=== PATIENT | male | born 1970 | race Caucasian/White ===

== ENCOUNTER 2025-03-12 20:59 | Observation (INO) ==
--- NOTE | 2025-03-12 21:15 | Emergency Department Note ---
Impression & Plan Chest pain, Hx of CABG ED Provider Note NAME: PREET ESTEBAN AGE: 54 SEX: M : 1970 ARRIVES VIA: Walk-In INFORMANT: Patient, ED PROVIDER(S): Dread Ordonez MD CHIEF COMPLAINT: Chest pain MEDICAL DECISION MAKING: Patient presents due to concern for chest pains. IV was established and blood work was obtained along with D-dimer. Patient's blood work shows a normal white count hemoglobin of 13.3 with a normal platelet count. Kidney function is unremarkable. Troponin negative. D-dimer is not elevated. Given the patient's known prior history of CABG with chest pain with radiation to the left arm I did consider escalation of care and offered admission. Patient is amenable to this. Patient was ordered 324 of aspirin. I did speak the on-call hospital service Dr. Wayne. The patient was admitted to the medicine service. Discussion w/ other healthcare providers: Dr. Adams inpatient medicine service Prior /Outside records reviewed: None Differential diagnosis: Cardiac ischemia, aortic dissection, pulmonary embolism, pneumothorax, pneumonia, pericarditis, myocarditis, GERD, cholecystitis, pancreatitis, musculoskeletal, as well as other pathologies were considered. Diagnostics, as interpreted by me: ECG: Normal sinus rhythm, rate of 81, normal intervals, normal axis no ST elevations or TWI. Cardiac monitoring: An order was placed for continuous cardiac monitoring. The monitor shows a rate of 76 with sinus rhythm. Patient was placed on pulse oximetry Medical decision rules: Heart score Imaging studies: I informally interpreted the patient's Chest x-ray does not show obvious pneumonia or pneumothorax, slight elevation of right hemidiaphragm with sternotomy wires noted. with formal report to follow. HPI: Patient presents due to concern for chest pains. He reports a left-sided chest pain primarily just with breathing. Patient denies any falls or trauma. He does appear for work and recently traveled from [place]. Patient reports that he does have a prior history of CABG that was completed about a year ago. He is compliant with antiplatelet medicine. He currently is only taking aspirin. This does not feel similar to his prior CABG. He states that this pain is similar to when he had a history of lymphoma. He reports that he had a stem cell treatment and did receive chemo and radiation therapies and is since in remission. This is back in 2015 and 2016. He denies any leg swelling or calf pain no history of DVT or PE. No falls or trauma. Denies any cough or fever. He does admit to some easy fatigability and shortness of breath with exertion but no exertional chest pains. He also did report that he had some numbness and tingling in the left arm. PAST MEDICAL HISTORY: CAD, lymphoma PAST SURGICAL HISTORY: CABG SOCIAL HISTORY: See Below HOME MEDICATIONS: See Below ALLERGIES: See Below VITALS: See Below PHYSICAL EXAMINATION: GENERAL: NAD, non-toxic. EYE EXAM: Normal conjunctiva. PERRL, no anisocoria and EOM's grossly intact w/o pain. OROPHARYNX: Moist mucus membranes, grossly normal dentition. NECK: Trachea midline, no stridor. LUNGS: Clear to auscultation. Normal chest wall mechanics. HEART: NSR, no MRG. ABDOMEN: Abdomen soft, non-tender, no masses, no rebound or guarding. BACK: No CVA TTP. SKIN: No rashes and no bruising. UPPER EXTREMITIES: Upper extremities are grossly normal. LOWER EXTREMITIES: Grossly normal, no edema. Negative Homans' sign bilaterally. NEURO EXAM: Awake and alert, follows commands, no obvious facial asymmetry, normal speech, moves all 4 extremities. Past Med/Surg History Problem List (Updated 03/13/25 @ 01:13 by Dread Ordonez MD) Hx of CABG (Acute) Chest pain (Acute) Social History Smoking Status: Never smoker Feels Safe at Home: Yes Allergies Allergies Allergy/AdvReac Type Severity Reaction Status Date / Time No Known Allergies Allergy Unverified 03/12/25 22:59 Home Meds Home Medications Medication Instructions Recorded Confirmed aspirin 325 mg tablet 325 mg PO QAM 03/12/25 03/12/25 atorvastatin 20 mg tablet 20 mg PO HS 03/12/25 03/12/25 cyanocobalamin (vitamin B-12) 1,000 mcg PO QAM 03/12/25 03/12/25 1,000 mcg tablet (Vitamin B-12) methenamine hippurate 1 gram tablet 1 g PO [facility] 03/12/25 03/12/25 metoprolol tartrate 25 mg tablet 25 mg PO QAM 03/12/25 03/12/25 omeprazole 20 mg capsule,delayed 20 mg PO DAILYBB 03/12/25 03/12/25 release Results & Data (ED) Vital Signs Vital Signs - 24 hr 03/12/25 21:01 03/12/25 21:16 03/12/25 21:20 Temperature 36.8 C Temperature Source Oral Pulse Rate 89 83 Pulse Rate [Apical] Pulse Rate from SpO2 Sensor Pulse Rhythm Pulse Rhythm [Apical] Pulse Strength [Apical] Respiratory Rate 18 Respiratory Effort / Characteristics Non-Labored Spontaneous Non-Labored Spontaneous Short of Breath Respiratory Depth Normal Respiratory Pattern Blood Pressure 139/89 Blood Pressure [Right Arm] Blood Pressure Mean 105 Blood Pressure Mean [Right Arm] Blood Pressure Position [Right Arm] Pulse Oximetry 100 Oxygen Delivery Method Room Air Sepsis Recent Fever Within 48 Hours No Sepsis New/Unexplained Change in Mental Status N/A Sepsis Action Taken by Nursing No Action Required 03/12/25 21:20 03/12/25 21:20 03/12/25 21:20 Temperature Temperature Source Pulse Rate 79 Pulse Rate [Apical] 78 Pulse Rate from SpO2 Sensor Pulse Rhythm Regular Pulse Rhythm [Apical] Regular Pulse Strength [Apical] Normal Respiratory Rate 15 20 Respiratory Effort / Characteristics Non-Labored Spontaneous Respiratory Depth Normal Respiratory Pattern Regular Blood Pressure Blood Pressure [Right Arm] 150/86 H Blood Pressure Mean Blood Pressure Mean [Right Arm] 107 Blood Pressure Position [Right Arm] Lying Pulse Oximetry 97 98 96 Oxygen Delivery Method Room Air Room Air Room Air Sepsis Recent Fever Within 48 Hours Sepsis New/Unexplained Change in Mental Status Sepsis Action Taken by Nursing 03/12/25 22:45 03/13/25 00:00 03/13/25 00:03 Temperature Temperature Source Pulse Rate 79 Pulse Rate [Apical] 81 Pulse Rate from SpO2 Sensor 78 Pulse Rhythm Pulse Rhythm [Apical] Regular Pulse Strength [Apical] Normal Respiratory Rate 18 13 Respiratory Effort / Characteristics Non-Labored Spontaneous Respiratory Depth Normal Respiratory Pattern Regular Blood Pressure 139/86 Blood Pressure [Right Arm] 133/81 Blood Pressure Mean 98 Blood Pressure Mean [Right Arm] 98 Blood Pressure Position [Right Arm] Lying Pulse Oximetry 96 97 Oxygen Delivery Method Room Air Room Air Sepsis Recent Fever Within 48 Hours Sepsis New/Unexplained Change in Mental Status Sepsis Action Taken by Assisted Medications Current Medication List: was personally reviewed by me Laboratory Data Attestation: I reviewed the patient's lab results. 03/12/25 21:17 03/12/25 21:17 Lab Results 03/12/25 Range/Units 21:17 WBC 7.28 (4.8-10.8) K/ul RBC 4.33 L (4.70-6.10) M/uL Hgb 13.3 L (14.0-18.0) g/dl Hct 39.1 L (42.0-52.0) % MCV 90.3 (80.0-100.0) fL MCH 30.7 (25.0-34.0) pg MCHC 34.0 (32.0-36.0) g/dL RDW Std Deviation 40.2 (36.4-46.3) fL RDW Coeff of Zaki 12.2 (11.5-14.5) % Plt Count 151 (130-400) K/uL MPV 9.3 L (9.4-12.4) fL Immature Gran % (Auto) 0.4 % Neut % (Auto) 57.1 % Lymph % (Auto) 29.8 % Hardy % (Auto) 11.5 % Eos % (Auto) 0.8 % Baso % (Auto) 0.4 % Neut # (Auto) 4.15 (1.40-6.50) K/uL Lymph # (Auto) 2.17 (1.20-3.40) K/uL Hardy # (Auto) 0.84 H (0.11-0.59) K/uL Eos # (Auto) 0.06 (0.00-0.50) K/uL Baso # (Auto) 0.03 (0.00-0.20) K/uL Immature Gran # (Auto) 0.03 (0.01-0.20) K/uL D-Dimer 500 (0-500) ug/L FEU Sodium 139 (136-145) mmol/L Potassium 3.9 (3.5-5.1) mmol/L Chloride 106 (98-107) mmol/L Carbon Dioxide 27 (21-32) mmol/L Anion Gap 6 (3-11) BUN 20 (6-23) mg/dl Creatinine 1.19 (0.6-1.4) mg/dl Est Cr Clr Drug Dosing 76.1 ml/min eGFR 71.69 BUN/Creatinine Ratio 16.8 (10-20) Glucose 114 H (70-99(Fasting)) mg/dl Calcium 9.1 (8.6-10.3) mg/dl Total Bilirubin 0.9 (0.2-1.0) mg/dl AST 21 (13-39) U/L ALT 22 (7-52) U/L Alkaline Phosphatase 80 (34-104) U/L Troponin I High Sens 4.4 (0-20) pg/ml Total Protein 6.6 (6.0-8.3) gm/dl Albumin 3.9 (3.4-5.0) gm/dl Globulin 2.7 (2.5-4.0) gm/dl Albumin/Globulin Ratio 1.4 (0.9-2) Lipase 9 L (11-82) U/L Administered Medications Discontinued Medications Ioversol (Optiray 320 125ml) 118 ml IV ONCE ONE Stop: 03/13/25 00:10 Last Admin: 03/13/25 00:10 Dose: 118 ml Documented By: LYNETTE Ondansetron HCl (Ondansetron Inj 2 Mg/Ml 2 Ml Vial) 4 mg IV NOW STA Stop: 03/12/25 22:41 Last Admin: 03/12/25 22:49 Dose: Not Given Documented By: [facility] Imaging Data Radiologist's Impression: Chest X-Ray 03/12/25 21:14 Exam(s): XR CXR 1 VIEW EXAM: XR Chest, 1 View CLINICAL HISTORY: Chest pain, nonspecific. TECHNIQUE: Frontal view of the chest. COMPARISON: No relevant prior studies available. FINDINGS: Lungs: Pulmonary vasculature appears to be within normal limits. Pleural space: Unremarkable. No pneumothorax. No large pleural effusion. Heart: Postsurgical changes consistent with previous CABG. No cardiomegaly. Mediastinum: No significant abnormality identified. The trachea is midline. Bones/joints: Unremarkable. No acute fracture. IMPRESSION: No focal consolidation or acute cardiopulmonary process identified. Incidental postoperative changes consistent with prior CABG. Electronically signed by: Ernesto Rizzo MD 03/13/25 00:48 AM Discharge Plan Visit Data Chief Complaint: Chest Pain Stated Complaint: CHEST PAIN, SOB, HX HEART PRBLM, HAD HEART SURGERY ED Provider: Dread Ordonez Discharge Problem: Chest pain, Hx of CABG Patient Disposition: Admitted As Inpatient Condition: Good Forms Stand Alone Forms: My [facility] Prescriptions Prescriptions: No Action atorvastatin 20 mg tablet 20 mg PO HS omeprazole 20 mg capsule,delayed release(DR/EC) 20 mg PO DAILYBB aspirin 325 mg Tablet 325 mg PO QAM methenamine hippurate 1 gram tablet 1 g PO [facility] cyanocobalamin (vitamin B-12) [Vitamin B-12] 1,000 mcg Tablet 1,000 mcg PO QAM metoprolol tartrate 25 mg tablet 25 mg PO QAM Referrals Referrals: PCP,NO [Primary Care Provider] - Discharge Problem: Chest pain Qualifiers: Chest pain type: unspecified Qualified Code(s): R07.9 - Chest pain, unspecified
[2025-03-12 21:35] LABS: Hematocrit (blood only) 39.1 % (42.0-52.0); Hemoglobin 13.3 g/dl (14.0-18.0); Immature Granulocytes # (auto) 0.03 K/uL (0.01-0.20); Immature Granulocytes % (auto) 0.4 %; Mean Corpuscular Hemoglobin 30.7 pg (25.0-34.0); Mean Corpuscular Volume 90.3 fL (80.0-100.0); Platelet Count 151 K/uL (130-400); RDW Standard Deviation 40.2 fL (36.4-46.3); Red Blood Count 4.33 M/uL (4.70-6.10); White Blood Count 7.28 K/ul (4.8-10.8)
[2025-03-12 21:52] LABS: Alanine Aminotransferase 22.0 U/L (7-52); Albumin Globulin Ratio 1.4 (0.9-2); Alkaline Phosphatase 80.0 U/L (34-104); Anion Gap 6.0 (3-11); Bilirubin,Total 0.9 mg/dl (0.2-1.0); Blood Urea Nitrogen 20.0 mg/dl (6-23); Calcium 9.1 mg/dl (8.6-10.3); Carbon Dioxide 27.0 mmol/L (21-32); Chloride 106.0 mmol/L (98-107); Creatinine Clr Calc Pharmacy 76.1 ml/min; Globulin 2.7 gm/dl (2.5-4.0); Glucose 114.0 mg/dl (70-99(Fasting)); Lipase 9.0 U/L (11-82); Potassium 3.9 mmol/L (3.5-5.1); Sodium 139.0 mmol/L (136-145); Total Protein 6.6 gm/dl (6.0-8.3)
[2025-03-12] MEDS: ONDANSETRON INJ 2 MG/ML 2 ML VIAL IV STA (22:49)
--- NOTE | 2025-03-12 23:45 | History & Physical Report ---
Date of Service March 12, 2025 Assessment & Plan (1) Chest pain: Plan: 54-year-old male unassigned patient who is from [place] and is in [place] for work with past medical history significant for CAD s/p CABG about a year ago, hyperlipidemia, obstructive apnea but not tolerating CPAP, GERD, history of Hodgkin's lymphoma status post chemoradiation in and also stem cell transplant in 2017 and since then in remission as per patient, Neuropathy comes with chest pain. Since 3 AM patient is having chest pain mainly while taking deep breath. And having dyspnea on exertion and fatigue on exertion. Currently no headache. Denies any dizziness. No nausea. No runny nose or sore throat or cough. No fevers. No abdominal pain. Normal bowel and bladder movements. Currently resting comfortably and hemodynamically stable. Chest pain Chest pain on taking deep breath Dyspnea on exertion Fatigue on exertion Initial EKG and troponin unremarkable History of CABG D-dimer high normal Will do CTA chest to rule out PE Will follow serial cardiac enzymes and echo Telemetry N.p.o. for now Cardiac consult in a.m. History of CAD status post CABG Continue home aspirin, statin and beta-marc Hyperlipidemia On statin Sleep apnea Not tolerating CPAP History of Hodgkin's lymphoma Status post chemoradiation in and stem cell transplant in 2017 DVT prophylaxis SCDs Disposition Observation med/telemetry Full code. History of Present Illness Chief Complaint: Chest pain Primary Care Provider: ANDRIY PCP 54-year-old male unassigned patient who is from [place] and is in [place] for work with past medical history significant for CAD s/p CABG about a year ago, hyperlipidemia, obstructive apnea but not tolerating CPAP, GERD, history of Hodgkin's lymphoma status post chemoradiation in and also stem cell transplant in 2016 and since then in remission as per patient, Neuropathy comes with chest pain. Since 3 AM patient is having chest pain mainly while taking deep breath. And having dyspnea on exertion and fatigue on exertion. Currently no headache. Denies any dizziness. No nausea. No runny nose or sore throat or cough. No fevers. No abdominal pain. Normal bowel and bladder movements. Currently resting comfortably and hemodynamically stable. Past med history. As mentioned above Past surgical history. CABG. Stem cell transplant Social history. Denies smoking. No alcohol history no drug use. Family history. Mother had diabetes and heart disease. Father had diabetes and leukemia. Allergies Allergy/AdvReac Type Severity Reaction Status Date / Time No Known Allergies Allergy Unverified 03/12/25 22:59 Home Medications Medication Instructions Recorded Confirmed Type aspirin 325 mg tablet 325 mg PO QAM 03/12/25 03/12/25 History atorvastatin 20 mg tablet 20 mg PO HS 03/12/25 03/12/25 History cyanocobalamin (vitamin B-12) 1,000 mcg PO QAM 03/12/25 03/12/25 History 1,000 mcg tablet (Vitamin B-12) methenamine hippurate 1 gram tablet 1 g PO [facility] 03/12/25 03/12/25 History metoprolol tartrate 25 mg tablet 25 mg PO QAM 03/12/25 03/12/25 History omeprazole 20 mg capsule,delayed 20 mg PO DAILYBB 03/12/25 03/12/25 History release Past Med/Surg History Problem List (Updated 03/13/25 @ 01:13 by Dread Ordonez MD) Hx of CABG (Acute) Chest pain (Acute) Social History Smoking Status: Never smoker Hx Alcohol Use: No Hx Substance Use: No Preferred Language: Korean Communication Ability: Effective 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 ENT- oropharynx clear Neck- supple, no JVD. Lungs- clear to auscultation no wheezing or crackles Heart- regular rhythm; no murmur, no gallop. Abdomen- normal bowel sounds, soft, nontender, no distension. Extremities- trace pretibial edema, no erythema seen Neuro- alert, oriented PERRL, no facial palsy; no dysarthria; moves extremities Results & Data Results & Data Vital Signs (Past 12 Hours) Vital Signs Temp Pulse Pulse Resp BP BP Pulse Ox 03/12/25 22:45 81 18 133/81 96 03/12/25 21:20 79 20 96 03/12/25 21:20 78 15 150/86 H 98 03/12/25 21:20 97 03/12/25 21:16 83 03/12/25 21:01 36.8 C 89 18 139/89 100 O2 Del Method 03/12/25 22:45 Room Air 03/12/25 21:20 Room Air 03/12/25 21:20 Room Air 03/12/25 21:20 Room Air 03/12/25 21:16 03/12/25 21:01 Room Air Diagnostic Findings Laboratory Results WBC 7.28 K/ul (4.8-10.8) 03/12/25 21:17 RBC 4.33 M/uL (4.70-6.10) L 03/12/25 21:17 Hgb 13.3 g/dl (14.0-18.0) L 03/12/25 21:17 Hct 39.1 % (42.0-52.0) L 03/12/25 21:17 MCV 90.3 fL (80.0-100.0) 03/12/25 21:17 MCH 30.7 pg (25.0-34.0) 03/12/25 21:17 MCHC 34.0 g/dL (32.0-36.0) 03/12/25 21:17 RDW Std Deviation 40.2 fL (36.4-46.3) 03/12/25 21:17 RDW Coeff of Zaki 12.2 % (11.5-14.5) 03/12/25 21:17 Plt Count 151 K/uL (130-400) 03/12/25 21:17 MPV 9.3 fL (9.4-12.4) L 03/12/25 21:17 Immature Gran % (Auto) 0.4 % 03/12/25 21:17 Neut % (Auto) 57.1 % 03/12/25 21:17 Lymph % (Auto) 29.8 % 03/12/25 21:17 Treasure % (Auto) 11.5 % 03/12/25 21:17 Eos % (Auto) 0.8 % 03/12/25 21:17 Baso % (Auto) 0.4 % 03/12/25 21:17 Neut # (Auto) 4.15 K/uL (1.40-6.50) 03/12/25 21:17 Lymph # (Auto) 2.17 K/uL (1.20-3.40) 03/12/25 21:17 Treasure # (Auto) 0.84 K/uL (0.11-0.59) H 03/12/25 21:17 Eos # (Auto) 0.06 K/uL (0.00-0.50) 03/12/25 21:17 Baso # (Auto) 0.03 K/uL (0.00-0.20) 03/12/25 21:17 Immature Gran # (Auto) 0.03 K/uL (0.01-0.20) 03/12/25 21:17 D-Dimer 500 ug/L FEU (0-500) 03/12/25 21:17 Sodium 139 mmol/L (136-145) 03/12/25 21:17 Potassium 3.9 mmol/L (3.5-5.1) 03/12/25 21:17 Chloride 106 mmol/L (98-107) 03/12/25 21:17 Carbon Dioxide 27 mmol/L (21-32) 03/12/25 21:17 Anion Gap 6 (3-11) 03/12/25 21:17 BUN 20 mg/dl (6-23) 03/12/25 21:17 Creatinine 1.19 mg/dl (0.6-1.4) 03/12/25 21:17 Est Cr Clr Drug Dosing 76.1 ml/min 03/12/25 21:17 eGFR 71.69 03/12/25 21:17 BUN/Creatinine Ratio 16.8 (10-20) 03/12/25 21:17 Glucose 114 mg/dl (70-99(Fasting)) H 03/12/25 21:17 Calcium 9.1 mg/dl (8.6-10.3) 03/12/25 21:17 Total Bilirubin 0.9 mg/dl (0.2-1.0) 03/12/25 21:17 AST 21 U/L (13-39) 03/12/25 21:17 ALT 22 U/L (7-52) 03/12/25 21:17 Alkaline Phosphatase 80 U/L (34-104) 03/12/25 21:17 Troponin I High Sens 4.4 pg/ml (0-20) 03/12/25 21:17 Total Protein 6.6 gm/dl (6.0-8.3) 03/12/25 21:17 Albumin 3.9 gm/dl (3.4-5.0) 03/12/25 21:17 Globulin 2.7 gm/dl (2.5-4.0) 03/12/25 21:17 Albumin/Globulin Ratio 1.4 (0.9-2) 03/12/25 21:17 Lipase 9 U/L (11-82) L 03/12/25 21:17 ECG Additional Comments: ECG. Normal sinus rhythm rate of 81. No acute ST changes seen. Code Status & VTE Plan VTE Prophylaxis Plan VTE Prophylaxis will be ordered: Yes
[2025-03-13] MEDS: OPTIRAY 320 125ml IV ONE (00:10)
--- NOTE | 2025-03-13 00:49 | XRay Report ---
Exam(s): XR CXR 1 VIEW EXAM: XR Chest, 1 View CLINICAL HISTORY: Chest pain, nonspecific. TECHNIQUE: Frontal view of the chest. COMPARISON: No relevant prior studies available. FINDINGS: Lungs: Pulmonary vasculature appears to be within normal limits. Pleural space: Unremarkable. No pneumothorax. No large pleural effusion. Heart: Postsurgical changes consistent with previous CABG. No cardiomegaly. Mediastinum: No significant abnormality identified. The trachea is midline. Bones/joints: Unremarkable. No acute fracture. IMPRESSION: No focal consolidation or acute cardiopulmonary process identified. Incidental postoperative changes consistent with prior CABG. Electronically signed by: Ernesto Rizzo MD 03/13/25 00:48 AM
[2025-03-13] MEDS ORDERED: POLYETHYLENE (MIRALAX) 17 GM PACK PO PRN (01:42)
[2025-03-13] MEDS ORDERED: NITROGLYCERIN SL 0.4 MG/TAB TAB SL PRN (01:42)
[2025-03-13] MEDS: SODIUM CHLORIDE 0.9% 500 ML IV SCH (02:07)
--- NOTE | 2025-03-13 02:22 | CT Scan Report ---
EXAM: CT angio chest PE protocol CLINICAL HISTORY: PE TECHNIQUE: Contiguous 3.[address] angiographic images of the chest were acquired with the administration of intravenous contrast (118 cc Optiray 320). Coronal and sagittal reconstructions were obtained. One of these 3D techniques was utilized: Maximum Intensity Pixel (MIP), 3D Reconstructed Images, Volume Rendered Images, Surface Shaded Rendering. One of the following dose reduction techniques was utilized for this exam: Automated exposure control, adjustment of the mA and or kV according to patient size, and use of iterative reconstruction. (CTDI: 28.14 mGy, DLP: 903.45 mGy*cm) COMPARISON: None. FINDINGS: Pulmonary Arteries: Non-homogeneous opacification of the subsegmental branches of pulmonary arteries, due to improper intravenous bolus acquisition timing, leading to simultaneous opacification of pulmonary veins. No evidence of pulmonary embolism in the visualised arterial tree. Aorta: The thoracic aorta shows mild atherosclerotic changes. Mediastinum: Subcentimetric mediastinal nodes noted. Heart: Borderline cardiomegaly noted. Surgical clips in the paracardiac region No pericardial effusion. Lungs: Subtle subpleural reticulations in bilateral lung emery. An area of air trapping in the anterior basal segment of the left lower lobe. No pleural effusion or thickening. Bones: Moderate degenerative changes in the thoracic spine. Post-sternotomy status. Soft Tissues: Normal appearance of the visualized soft tissues. No abnormal masses or fluid collections. Upper Abdomen: Hiatus hernia noted. IMPRESSION: No evidence of pulmonary embolism in the visualised arterial tree. Electronically signed by Toni Maldonado 03-13-2025 02:19 AM
[2025-03-13] MEDS: ACETAMINOPHEN 325 MG TAB PO PRN (05:27)
[2025-03-13 05:53] LABS: Hematocrit (blood only) 37.2 % (42.0-52.0); Hemoglobin 12.7 g/dl (14.0-18.0); Immature Granulocytes # (auto) 0.02 K/uL (0.01-0.20); Immature Granulocytes % (auto) 0.4 %; Mean Corpuscular Hemoglobin 30.7 pg (25.0-34.0); Mean Corpuscular Volume 89.9 fL (80.0-100.0); Platelet Count 138 K/uL (130-400); RDW Standard Deviation 39.3 fL (36.4-46.3); Red Blood Count 4.14 M/uL (4.70-6.10); White Blood Count 5.48 K/ul (4.8-10.8)
[2025-03-13 06:07] LABS: Anion Gap 4.0 (3-11); Blood Urea Nitrogen 19.0 mg/dl (6-23); Calcium 8.6 mg/dl (8.6-10.3); Carbon Dioxide 27.0 mmol/L (21-32); Chloride 107.0 mmol/L (98-107); Creatinine Clr Calc Pharmacy 115.2 ml/min; Glucose 109.0 mg/dl (70-99(Fasting)); Magnesium 1.8 mg/dl (1.7-2.4); Potassium 4.2 mmol/L (3.5-5.1); Sodium 138.0 mmol/L (136-145)
[2025-03-13 08:44] VITALS: RESP 16; TEMP 98.1
[2025-03-13] MEDS: ASPIRIN 325 MG ECTAB PO SCH (09:19)
[2025-03-13] MEDS: CYANOCOBALAMIN (B-12) 500 MCG TABLET PO SCH (09:19)
[2025-03-13] MEDS: METOPROLOL TARTRATE 25 MG TAB PO SCH (09:19)
[2025-03-13] MEDS: METHENAMINE HIPPURATE 1 GM TAB PO SCH (09:20)
--- NOTE | 2025-03-13 10:49 | Cardiology Consultation ---
Date of Consultation March 13, 2025 Assessment & Plan (1) Chest pain: (2) Hx of CABG: (3) History of radiation therapy of chest: (4) Dyslipidemia, goal LDL below 70: Plan 54-year-old male with history of silent myocardial infarction, coronary artery disease status post CABG x 2, and chest radiation presents with atypical chest discomfort. High-sensitivity troponin within normal limits. Echocardiogram with focal, apical posterior hypokinesis and preserved LV systolic function. No prior study available for comparison. Recommend Lexiscan nuclear stress test for further evaluation. Patient agreeable. Continue current cardiovascular medications including aspirin, statin, and beta-marc therapy. Outpatient records requested from patient's appeals coordinator in [place], Guillermo Frederick MD [phone]. Juan Reyes DO, [facility] History of Present Illness Reason for Consultation: chest pain Requesting Physician: Dr. Preston Adams Attending Physician: Carlos Duke MD History of Present Illness 54-year-old male with history of Hodgkin's lymphoma status post chemoradiation in 2014/2015 and stem cell transplantation 2017 in remission presented to the emergency department with chest pain. Underwent coronary artery bypass grafting x 2 approximately 1 year ago while living in [place]. I do not have records of that operation. States he was told he had a silent heart attack. Reports CAD possibly attributed to radiation therapy for lymphoma. Presents to the ER with right sided chest discomfort beginning approximately 2 days ago. The pain began to radiate to his upper chest with a pleuritic component. Last evening he noted significant discomfort with deep inspiration. No cough, fever, or sputum production. Chest pain has improved this a.m. His high-sensitivity troponins are within normal limits. ECG without ST abn ormality. Echocardiogram demonstrates a focal area of apical posterior hypokinesis although there are no old studies for comparison. Outpatient cardiac medications include atorvastatin, metoprolol, and aspirin. 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 Attributes mild, chronic bilateral ankle edema to neuropathy. He is not treated with diuretics. CTA of the chest performed on admission without evidence of pulmonary embolus. Allergies Allergy/AdvReac Type Severity Reaction Status Date / Time perflutren [From [facility]] AdvReac Back Pain Verified 03/13/25 10:54 Home Medications Medication Instructions Recorded Confirmed Type aspirin 325 mg tablet 325 mg PO QAM 03/12/25 03/12/25 History atorvastatin 20 mg tablet 20 mg PO HS 03/12/25 03/12/25 History cyanocobalamin (vitamin B-12) 1,000 mcg PO QAM 03/12/25 03/12/25 History 1,000 mcg tablet (Vitamin B-12) methenamine hippurate 1 gram tablet 1 g PO AMHS 03/12/25 03/12/25 History metoprolol tartrate 25 mg tablet 25 mg PO QAM 03/12/25 03/12/25 History omeprazole 20 mg capsule,delayed 20 mg PO DAILYBB 03/12/25 03/12/25 History release Patient History Social History Smoking Status: Never smoker Hx Alcohol Use: No Hx Substance Use: No Preferred Language: Bahraini Communication Ability: Effective 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 Beliefs That Will Affect Care: None Current Living Situation: Spouse Other Information That Helps Us Care for You: No Feels Safe at Home: Yes Safety Concerns: Feels Safe At This Time Assistive Devices: Glasses Review of Systems Review of Systems: All systems reviewed & are unremarkable except as noted in Subjective Physical Exam Constitutional: well nourished; no acute distress Respiratory: normal respiratory effort; no respiratory distress, no labored breathing and no retractions Auscultation: no crackles, no rales, no rhonchi and no wheezes Cardiovascular: Rate/Rhythm: regular rate and regular rhythm Heart Sounds: normal S1 and normal S2; no murmur Palpation: normal PMI Vessels: no JVD, no carotid bruit and no abdominal aortic bruit Extremities: + edema (Trace bilateral ankle edema.) Gastrointestinal (Abdomen): Inspection/Auscultation: abdomen normal to inspection and normal bowel sounds; abdomen not distended Percussion/Palpation: + abdomen rigid; abdomen nontender, no guarding and + abdomen not soft Neurologic: CN's II-XI intact bilaterally and moves all extremities; no focal motor deficits Results & Data Vital Signs (Past 12 Hours) Vital Signs Temp Pulse Pulse Resp BP BP Pulse Ox 03/13/25 08:43 36.7 C 73 16 121/70 96 03/13/25 07:35 80 03/13/25 01:54 72 03/13/25 01:44 36.4 C L 76 17 146/89 H 96 03/13/25 01:15 03/13/25 00:03 79 13 97 03/13/25 00:00 139/86 03/12/25 22:45 81 18 133/81 96 O2 Del Method 03/13/25 08:43 Room Air 03/13/25 07:35 03/13/25 01:54 03/13/25 01:44 Room Air 03/13/25 01:15 Room Air 03/13/25 00:03 Room Air 03/13/25 00:00 03/12/25 22:45 Room Air Laboratory Results Cardiac Enzymes 03/12/25 03/13/25 Range/Units 21:17 05:31 AST 21 (13-39) U/L Troponin I High Sens 4.4 4.5 (0-20) pg/ml CBC 03/12/25 03/13/25 Range/Units 21:17 05:31 WBC 7.28 5.48 (4.8-10.8) K/ul RBC 4.33 L 4.14 L (4.70-6.10) M/uL Hgb 13.3 L 12.7 L (14.0-18.0) g/dl Hct 39.1 L 37.2 L (42.0-52.0) % Plt Count 151 138 (130-400) K/uL Neut # (Auto) 4.15 2.97 (1.40-6.50) K/uL Lymph # (Auto) 2.17 1.62 (1.20-3.40) K/uL Menard # (Auto) 0.84 H 0.75 H (0.11-0.59) K/uL Eos # (Auto) 0.06 0.09 (0.00-0.50) K/uL Baso # (Auto) 0.03 0.03 (0.00-0.20) K/uL Comprehensive Metabolic Panel 03/12/25 03/13/25 Range/Units 21:17 05:31 Sodium 139 138 (136-145) mmol/L Potassium 3.9 4.2 (3.5-5.1) mmol/L Chloride 106 107 (98-107) mmol/L Carbon Dioxide 27 27 (21-32) mmol/L BUN 20 19 (6-23) mg/dl Creatinine 1.19 0.93 (0.6-1.4) mg/dl Glucose 114 H 109 H (70-99(Fasting)) mg/dl Calcium 9.1 8.6 (8.6-10.3) mg/dl AST 21 (13-39) U/L ALT 22 (7-52) U/L Alkaline Phosphatase 80 (34-104) U/L Total Protein 6.6 (6.0-8.3) gm/dl Albumin 3.9 (3.4-5.0) gm/dl Intake and Output 03/12/25 03/13/25 03/13/25 22:59 06:59 14:59 Intake Total 500 / 500 Balance 500 / 500 Intake: IV 500 / 500 Sodium Chloride 0.9% 500 ml @ 500 / 500 80 mls/hr IV .Q6H15M [facility] Rx#: [id number] Other: Weight 91.1 kg 113.1 kg Weight Measurement Method Chair Scale Built in [facility] PG Care Time/CCT Total # of Minutes Spent Total Time Spent with Patient: Total time spent is greater than 50% in coordination of care (as documented) at patient's floor/unit and/or counseling patient: Coding Level of Care Code 87896 IN/OBS CONSULT LVL 4,60M Diagnoses Chest pain R07.9 Chest pain type: unspecified Hx of CABG Z95.1 History of radiation therapy of chest Z92.3 Dyslipidemia, goal LDL below 70 E78.5 (1) Chest pain Chest pain type: unspecified Qualified Code(s): R07.9 - Chest pain, unspecified
[2025-03-13 11:02] VITALS: BP 129/75; PULSE 72; O2SAT 94
[2025-03-13] MEDS: REGADENOSON 0.4 MG/5 ML SYR IV ONE (13:26)
--- NOTE | 2025-03-13 14:15 | Myocardial Perfusion Study ---
Date of Service March 13, 2025 Myocardial Perfusion Study [facility] Myocardial Perfusion Study Report Indication: Chest pain, history of coronary artery bypass grafting x 2, history of chest radiation for lymphoma. Patient performed stress test according to Lexiscan protocol for 4 minutes. Work level of 1.00 METS achieved. Resting heart rate of 65 bpm michael to a maximal heart rate of 95 bpm. This value represents 57% of the maximal, age- predicted heart rate. Resting blood pressure 128/88 michael to a maximum blood pressure of 128/88. Test was stopped due to completion of protocol. Normal heart rate and blood pressure response to Lexiscan infusion. Symptoms: Nausea, fatigue Resting ECG: Normal sinus rhythm, nonspecific T wave abnormality in aVL. Stress ECG: No ischemia. Nuclear imaging: For the stress portion of the study 32 mCi of technetium 99m Cardiolite IV was injected at 12:30 PM on 03/13/2025. 30 minutes following the injection, imaging of the heart was performed in multiple projections. For the rest portion of the study, 10.8 mCi of technetium 99m Cardiolite was injected IV at 10:46 AM. 1 hour following the injection, imaging of the heart was performed in the same projections. Raw data: No significant extracardiac uptake of isotope tracer on rotating, raw data images. Right ventricle: Not well-visualized Resting images: Normal perfusion Stress images: Normal perfusion, no reversible perfusion defects to suggest ischemia. Gated SPECT imaging: Normal left ventricular myocardial thickening and wall motion. Normal LV cavity size. The calculated ventricular ejection fraction is 68%. Conclusion: 1. Normal Lexiscan myocardial nuclear perfusion imaging study without evidence of myocardial scar, or inducible ischemia. 2. Normal gated SPECT imaging. Calculated left ventricular ejection fraction is 68%. Juan Reyes DO, [facility]
--- NOTE | 2025-03-13 14:36 | Hospitalist Progress Note ---
Date of Service March 13, 2025 Assessment & Plan (1) Chest pain: Plan: 54-year-old male unassigned patient who is from [place] and is in [employer] for work with past medical history significant for CAD s/p CABG about a year ago, hyperlipidemia, obstructive apnea but not tolerating CPAP, GERD, history of Hodgkin's lymphoma status post chemoradiation in and also stem cell transplant in 2017 and since then in remission as per patient, Neuropathy comes with chest pain. Since 3 AM patient is having chest pain mainly while taking deep breath. And having dyspnea on exertion and fatigue on exertion. Currently no headache. Denies any dizziness. No nausea. No runny nose or sore throat or cough. No fevers. No abdominal pain. Normal bowel and bladder movements. Currently resting comfortably and hemodynamically stable. Atypical chest pain Chest pain on taking deep breath H/O CABG --Chest CTA:No evidence of pulmonary embolism in the visualised arterial tree. -- Myocardial stress test:Normal Lexiscan myocardial nuclear perfusion imaging study without evidence of myocardial scar, or inducible ischemia. Normal gated SPECT imaging. Calculated left ventricular ejection fraction is 68%. --ECHO: EF 60 to 65%. Mild concentric LVH. Small, focal area of apical posterior hypokinesis. Otherwise normal wall motion. Mild aortic regurgitation. Mild tricuspid regurgitation. Doppler findings do not suggest pulmonary hypertension. No comparison study available. --Troponin x 2 negative Continue aspirin, Lipitor, metoprolol Appreciate cardiology input Plan to be discharged home today Hyperlipidemia Continue Lipitor Sleep apnea Not tolerating CPAP History of Hodgkin's lymphoma Status post chemoradiation in and stem cell transplant in 2017 DVT prophylaxis SCDs CODE STATUS Full code Disposition Home Admission and Anticipated Discharge Date Admission Date: March 12, 2025 Subjective Patient is seen and examined at bedside Pleuritic chest pain much improved Offers no other complaints today Had stress test earlier today Discussed with cardiology via Berino text Plan to be discharged home today Review of Systems Review of Systems: All systems reviewed & are unremarkable except as noted in Subjective Physical Exam Physical Exam: Physical Exam: Vitals signs as noted above General Appearance:Obese, no apparent distress Head: normocephalic, Atraumatic Eyes: normal inspection, EOMI Neck: supple, Trachea midline Respiratory/Chest: Normal breath sounds, CTA, +CABG scar, No accessory muscle use Cardiovascular: S1, S2, No murmur Abdomen/GI:Soft, Non tender, Bowel sounds present Extremities/Musculoskeletal:normal inspection, 1+ B/L LE edema Neurologic/Psych:AAOX3, grossly no focal neurological deficits Skin: normal color, warm Results & Data Results & Data Vital Signs (Past 12 Hours) Vital Signs Temp Pulse Pulse Resp BP Pulse Ox O2 Del Method 03/13/25 11:01 36.7 C 72 16 129/75 94 Room Air 03/13/25 08:43 36.7 C 73 16 121/70 96 Room Air 03/13/25 07:35 80 Laboratory Results Short CBC 03/12/25 03/13/25 Range/Units 21:17 05:31 WBC 7.28 5.48 (4.8-10.8) K/ul Hgb 13.3 L 12.7 L (14.0-18.0) g/dl Hct 39.1 L 37.2 L (42.0-52.0) % Plt Count 151 138 (130-400) K/uL BMP 03/12/25 03/13/25 21:17 05:31 Sodium 139 138 Potassium 3.9 4.2 Chloride 106 107 Carbon Dioxide 27 27 BUN 20 19 Creatinine 1.19 0.93 Glucose 114 H 109 H Calcium 9.1 8.6 Liver Function 03/12/25 Range/Units 21:17 Total Bilirubin 0.9 (0.2-1.0) mg/dl AST 21 (13-39) U/L ALT 22 (7-52) U/L Alkaline Phosphatase 80 (34-104) U/L Albumin 3.9 (3.4-5.0) gm/dl (1) Chest pain Chest pain type: unspecified Qualified Code(s): R07.9 - Chest pain, unspecified
--- NOTE | 2025-03-13 14:57 | Discharge Summary ---
Date of Service March 13, 2025 Admission HPI Per Admitting Provider 54-year-old male unassigned patient who is from [place] and is in [place] for work with past medical history significant for CAD s/p CABG about a year ago, hyperlipidemia, obstructive apnea but not tolerating CPAP, GERD, history of Hodgkin's lymphoma status post chemoradiation in and also stem cell transplant in 2017 and since then in remission as per patient, Neuropathy comes with chest pain. Since 3 AM patient is having chest pain mainly while taking deep breath. And having dyspnea on exertion and fatigue on exertion. Currently no headache. Denies any dizziness. No nausea. No runny nose or sore throat or cough. No fevers. No abdominal pain. Normal bowel and bladder movements. Currently resting comfortably and hemodynamically stable. Past med history. As mentioned above Past surgical history. CABG. Stem cell transplant Social history. Denies smoking. No alcohol history no drug use. Family history. Mother had diabetes and heart disease. Father had diabetes and leukemia. Admission Exam Per Admitting Provider General- Not in distress Head- atraumatic Eyes- PERRL. ENT- oropharynx clear Neck- supple, no JVD. Lungs- clear to auscultation no wheezing or crackles Heart- regular rhythm; no murmur, no gallop. Abdomen- normal bowel sounds, soft, nontender, no distension. Extremities- trace pretibial edema, no erythema seen Neuro- alert, oriented PERRL, no facial palsy; no dysarthria; moves extremities Principal Diagnosis Atypical chest pain Discharge Data Allergies Allergy/AdvReac Type Severity Reaction Status Date / Time perflutren [From Definity] AdvReac Back Pain Verified 03/13/25 10:54 Consultations 03/12/25 22:41 ED Decision to Admit Stat 03/13/25 08:00 Consult Cardiology Routine Procedures Performed Laboratory Results WBC 5.48 K/ul (4.8-10.8) 03/13/25 05:31 RBC 4.14 M/uL (4.70-6.10) L 03/13/25 05:31 Hgb 12.7 g/dl (14.0-18.0) L 03/13/25 05:31 Hct 37.2 % (42.0-52.0) L 03/13/25 05:31 MCV 89.9 fL (80.0-100.0) 03/13/25 05:31 MCH 30.7 pg (25.0-34.0) 03/13/25 05:31 MCHC 34.1 g/dL (32.0-36.0) 03/13/25 05:31 RDW Std Deviation 39.3 fL (36.4-46.3) 03/13/25 05:31 RDW Coeff of Zaki 12.0 % (11.5-14.5) 03/13/25 05:31 Plt Count 138 K/uL (130-400) 03/13/25 05:31 MPV 9.5 fL (9.4-12.4) 03/13/25 05:31 Immature Gran % (Auto) 0.4 % 03/13/25 05:31 Neut % (Auto) 54.2 % 03/13/25 05:31 Lymph % (Auto) 29.6 % 03/13/25 05:31 Pine % (Auto) 13.7 % 03/13/25 05:31 Eos % (Auto) 1.6 % 03/13/25 05:31 Baso % (Auto) 0.5 % 03/13/25 05:31 Neut # (Auto) 2.97 K/uL (1.40-6.50) 03/13/25 05:31 Lymph # (Auto) 1.62 K/uL (1.20-3.40) 03/13/25 05:31 Pine # (Auto) 0.75 K/uL (0.11-0.59) H 03/13/25 05:31 Eos # (Auto) 0.09 K/uL (0.00-0.50) 03/13/25 05:31 Baso # (Auto) 0.03 K/uL (0.00-0.20) 03/13/25 05:31 Immature Gran # (Auto) 0.02 K/uL (0.01-0.20) 03/13/25 05:31 D-Dimer 500 ug/L FEU (0-500) 03/12/25 21:17 Sodium 138 mmol/L (136-145) 03/13/25 05:31 Potassium 4.2 mmol/L (3.5-5.1) 03/13/25 05:31 Chloride 107 mmol/L (98-107) 03/13/25 05:31 Carbon Dioxide 27 mmol/L (21-32) 03/13/25 05:31 Anion Gap 4 (3-11) 03/13/25 05:31 BUN 19 mg/dl (6-23) 03/13/25 05:31 Creatinine 0.93 mg/dl (0.6-1.4) 03/13/25 05:31 Est Cr Clr Drug Dosing 115.2 ml/min 03/13/25 05:31 eGFR 96.37 03/13/25 05:31 BUN/Creatinine Ratio 20.4 (10-20) H 03/13/25 05:31 Glucose 109 mg/dl (70-99(Fasting)) H 03/13/25 05:31 Calcium 8.6 mg/dl (8.6-10.3) 03/13/25 05:31 Magnesium 1.8 mg/dl (1.7-2.4) 03/13/25 05:31 Total Bilirubin 0.9 mg/dl (0.2-1.0) 03/12/25 21:17 AST 21 U/L (13-39) 03/12/25 21:17 ALT 22 U/L (7-52) 03/12/25 21:17 Alkaline Phosphatase 80 U/L (34-104) 03/12/25 21:17 Troponin I High Sens 4.5 pg/ml (0-20) 03/13/25 05:31 Total Protein 6.6 gm/dl (6.0-8.3) 03/12/25 21:17 Albumin 3.9 gm/dl (3.4-5.0) 03/12/25 21:17 Globulin 2.7 gm/dl (2.5-4.0) 03/12/25 21:17 Albumin/Globulin Ratio 1.4 (0.9-2) 03/12/25 21:17 Lipase 9 U/L (11-82) L 03/12/25 21:17 Impressions Chest X-Ray 03/12/25 21:14 Exam(s): XR CXR 1 VIEW EXAM: XR Chest, 1 View CLINICAL HISTORY: Chest pain, nonspecific. TECHNIQUE: Frontal view of the chest. COMPARISON: No relevant prior studies available. FINDINGS: Lungs: Pulmonary vasculature appears to be within normal limits. Pleural space: Unremarkable. No pneumothorax. No large pleural effusion. Heart: Postsurgical changes consistent with previous CABG. No cardiomegaly. Mediastinum: No significant abnormality identified. The trachea is midline. Bones/joints: Unremarkable. No acute fracture. IMPRESSION: No focal consolidation or acute cardiopulmonary process identified. Incidental postoperative changes consistent with prior CABG. Electronically signed by: Ernesto Rizzo MD 03/13/25 00:48 AM Chest CTA 03/12/25 23:33 EXAM: CT angio chest PE protocol CLINICAL HISTORY: PE TECHNIQUE: Contiguous 3.[address] angiographic images of the chest were acquired with the administration of intravenous contrast (118 cc Optiray 320). Coronal and sagittal reconstructions were obtained. One of these 3D techniques was utilized: Maximum Intensity Pixel (MIP), 3D Reconstructed Images, Volume Rendered Images, Surface Shaded Rendering. One of the following dose reduction techniques was utilized for this exam: Automated exposure control, adjustment of the mA and or kV according to patient size, and use of iterative reconstruction. (CTDI: 28.14 mGy, DLP: 903.45 mGy*cm) COMPARISON: None. FINDINGS: Pulmonary Arteries: Non-homogeneous opacification of the subsegmental branches of pulmonary arteries, due to improper intravenous bolus acquisition timing, leading to simultaneous opacification of pulmonary veins. No evidence of pulmonary embolism in the visualised arterial tree. Aorta: The thoracic aorta shows mild atherosclerotic changes. Mediastinum: Subcentimetric mediastinal nodes noted. Heart: Borderline cardiomegaly noted. Surgical clips in the paracardiac region No pericardial effusion. Lungs: Subtle subpleural reticulations in bilateral lung emery. An area of air trapping in the anterior basal segment of the left lower lobe. No pleural effusion or thickening. Bones: Moderate degenerative changes in the thoracic spine. Post-sternotomy status. Soft Tissues: Normal appearance of the visualized soft tissues. No abnormal masses or fluid collections. Upper Abdomen: Hiatus hernia noted. IMPRESSION: No evidence of pulmonary embolism in the visualised arterial tree. Electronically signed by Toni Maldonado 03-13-2025 02:19 AM Ordered Studies 03/12/25 23:33 CT angio chest PE protocol Urgent Hospital Course (1) Chest pain: 54-year-old male unassigned patient who is from [place] and is in [place] for work with past medical history significant for CAD s/p CABG about a year ago, hyperlipidemia, obstructive apnea but not tolerating CPAP, GERD, history of Hodgkin's lymphoma status post chemoradiation in and also stem cell transplant in 2017 and since then in remission as per patient, Neuropathy comes with chest pain. Since 3 AM patient is having chest pain mainly while taking deep breath. And having dyspnea on exertion and fatigue on exertion. Currently no headache. Denies any dizziness. No nausea. No runny nose or sore throat or cough. No fevers. No abdominal pain. Normal bowel and bladder movements. Currently resting comfortably and hemodynamically stable. Atypical chest pain Chest pain on taking deep breath H/O CABG --Chest CTA:No evidence of pulmonary embolism in the visualised arterial tree. -- Myocardial stress test:Normal Lexiscan myocardial nuclear perfusion imaging study without evidence of myocardial scar, or inducible ischemia. Normal gated SPECT imaging. Calculated left ventricular ejection fraction is 68%. --ECHO: EF 60 to 65%. Mild concentric LVH. Small, focal area of apical posterior hypokinesis. Otherwise normal wall motion. Mild aortic regurgitation. Mild tricuspid regurgitation. Doppler findings do not suggest pulmonary hypertension. No comparison study available. --Troponin x 2 negative Continue aspirin, Lipitor, metoprolol Appreciate cardiology input Plan to be discharged home today Hyperlipidemia Continue Lipitor Sleep apnea Not tolerating CPAP History of Hodgkin's lymphoma Status post chemoradiation in and stem cell transplant in 2017 DVT prophylaxis SCDs CODE STATUS Full code Disposition Home Total Time Total Time Spent Total Time Spent (In Minutes): 43 minutes Discharge Plan Discharge Items Patient Disposition: Home - Self-Care Reason For Visit: CHEST PAIN Discharge Diagnosis: Atypical chest pain Condition on Discharge: Good Activity: Per Instructions section Exercise/Sports: Gradually increase as tolerated Non-emergency contact: Primary Care Provider Call non-emergency contact if: you have any medication questions, your symptoms worsen, your pain is concerning for you and you have a fever Follow-up/Referrals: PCP,NO [Primary Care Provider] - Diet: Heart Healthy Add Attending Provider Instructions: -- Follow-up with your primary care physician in 1 week -- Consider following with your mail technician in 2 to 3 weeks Seek immediate medical attention if your symptoms reoccur or worsen Please review medication list provided on discharge for any medication changes as instructed. Please call if you have any questions or problems. You can reach a [facility] hospitalist on duty at [facility] 24 hours a day by calling [phone] On License Of [facility] Receptionist Clerk Provider Instructions: Home Care: * Take your medications exactly as directed. Don't skip doses. * Remember that recovery after a heart attack takes time. Plan to rest for at lease 4-8 weeks while you recover. Then return to normal activity when your doctor says it's okay. * Ask your doctor about joining a heart rehabilitation program. * Tell your doctor if you are feeling depressed. Feelings of sadness are common after a heart attack, but it is important that you speak to someone if you are feeling overwhelmed by these feelings. * If you are having chest pain, call 911 for an ambulance. Do NOT drive yourself to the hospital. * Ask your family members to learn CPR. * Learn to take your own blood pressure and pulse. Keep a record of your results. Ask your doctor when you should seek emergency medical attention. He or she will tell you which blood pressure reading is dangerous. Lifestyle Changes: * Maintain a healthy weight. Get help to lose any extra pounds. * Cut back on salt. * Limit canned, dried, packaged, and fast foods. * Don't add salt to your food. * Season foods with herbs instead of salt when you cook. * Break the smoking habit. Enroll in a stop-smoking program to improve your chances of success. * Limit fatty foods. * Ask your doctor about having your lipid levels checked regularly. * Build up your activity according to your doctor's recommendation. * Ask your doctor when it's okay to resume sexual activity. * Tell your doctor about any erectile dysfunction (ED) medication you are taking. Some ED medications are not safe if you take certain heart medications. * Try to manage stress. Follow Up: It is important for you to keep your follow up appointments with your medical provider. Pending Studies at Discharge: No Stand-Alone Forms: My [facility], Smoking Cessation Medications and DC Order Prescriptions: Continued atorvastatin 20 mg tablet 20 mg PO HS omeprazole 20 mg capsule,delayed release(DR/EC) 20 mg PO DAILYBB aspirin 325 mg Tablet 325 mg PO QAM methenamine hippurate 1 gram tablet 1 g PO AMHS cyanocobalamin (vitamin B-12) [Vitamin B-12] 1,000 mcg Tablet 1,000 mcg PO QAM metoprolol tartrate 25 mg tablet 25 mg PO QAM Discharge Orders: Discharge Order (Routine); Ordered 03/13/25 Ordered By: Carlos Duke Admission Data Admit Date/Time: 03/12/25 23:33 Attending Provider: Carlos Duke Admit Provider: Preston Adams Primary Care Provider: PCP,NO Other Providers: Preston Adams; Sweetie Woods; Mark Reed; Angel Rivera; Juan Reyes; Robert Ying; Desean Aragon; Yenny Tanner; Gisele Jose; Génesis Patrick; Patricia Travis; Sweetie Moses; Bobby Steele; Marco Ontiveros; Carolynn Diallo; Aida García; Andra Espinal; Sivakumar Leggett; Kyrie Lazaro; Nora Limon; Rosa Hughes; Jeferson Roberto; Antony Valle N
[2025-03-13] MEDS ORDERED: METOPROLOL TARTRATE 25 MG TAB PO SCH (21:00)
[2025-03-13] MEDS ORDERED: ATORVASTATIN 20 MG TAB PO SCH (21:00)
--- NOTE | 2025-03-16 07:57 | Electrocardiogram Report ---
Test Reason : Blood Pressure : */* mmHG Vent. Rate : 81 BPM Atrial Rate : 81 BPM P-R Int : 152 ms QRS Dur : 84 ms QT Int : 374 ms P-R-T Axes : -10 -12 -23 degrees QTcB Int : 434 ms Poor data quality, interpretation may be adversely affected Normal sinus rhythm Normal ECG No previous ECGs available Confirmed by Rg Montanez ([id number]) on 03/16/2025 7:57:01 AM Referred By: REFERRED SELF Confirmed By: Rg Montanez
== END 2025-03-13 15:43 | disposition home or self-care (01) ==
LOC: 2N 20:59 → ED 20:59 → SUATTDRO 23:33 → 2N 03-13 01:15